=== PATIENT | male | born 1980 | race Caucasian/White ===

== ENCOUNTER 2016-08-10 22:58 | Emergency (ER) | payer OTHER ==
[~2016-08-10] VITALS: Ht 198.1 cm; Wt 108.9 kg
[2016-08-10 23:03] VITALS: BP 119/76
--- NOTE | 2016-08-10 23:14 | NUR ---
DR. FOY AND [facility]- AT THE BEDSIDE FOR EVAL.
--- NOTE | 2016-08-10 23:14 | NUR ---
PT PRESENTED TO THE ER WITH A C/O RT, LT AND UMBILICAL ABD PAIN. PT DENIES N/V/D. PT AMBULATED TO BED #7 WITH A STEADY GAIT.
[2016-08-10 23:40] LABS: BASOPHILS % (AUTO) 0.5 % (0.0-2.0); EOSINOPHILS # (AUTO) 0.3 /CMM (0.0-0.7); EOSINOPHILS % (AUTO) 4.8 % (0.0-6.0); HEMATOCRIT 41 % (39-51); HEMOGLOBIN 13.9 g/dL (13.5-17.5); LYMPHOCYTES # (AUTO) 2.7 /CMM (0.8-4.8); LYMPHOCYTES % (AUTO) 42.1 % (20.0-44.0); MEAN CORPUSCULAR HEMOGLOBIN 30 PG (26.0-33.0); MEAN CORPUSCULAR HGB CONC 34 g/dl (31.0-36.0); MEAN CORPUSCULAR VOLUME 87 fL (80-96); MONOCYTES # (AUTO) 0.5 /CMM (0.1-1.30); MONOCYTES % (AUTO) 7.9 % (2.0-12.0); NEUTROPHILS # (AUTO) 2.9 /CMM (1.8-8.9); NEUTROPHILS % (AUTO) 44.7 % (43.0-81.0); PLATELET COUNT (AUTO) 216 /CMM (150-450); WHITE BLOOD COUNT (AUTO) 6.5 K/uL (4.3-11.0)
[2016-08-10 23:47] LABS: CALCIUM, SERUM 8.4 mg/dL (8.5-10.1); POTASSIUM 4.3 mmol/L (3.5-5.1)
[2016-08-10 23:53] LABS: ALBUMIN 4.1 g/dL (3.4-5.0); BILIRUBIN,DIRECT 0.1 mg/dL (0.0-0.2); BILIRUBIN,TOTAL 0.5 mg/dL (0.2-1.0); TOTAL PROTEIN, SERUM 7.2 g/dL (6.4-8.2)
--- NOTE | 2016-08-10 23:57 | NUR ---
PT IS SLEEPING SOUNDLY/SNORING. NO S/S OF PAIN OR DISTRESS NOTED. DR. FOY NOTIFIED.
--- NOTE | 2016-08-11 00:09 | NUR ---
LU[facility]S OGDEN AND DR. FOY AT THE BEDSIDE FOR US.
[2016-08-11] MEDS ORDERED: FAMOTIDINE (20 MG) 20 MG TABLET ONE (00:12)
--- NOTE | 2016-08-11 00:16 | NUR ---
PT REFUSED MEDICATION.
--- NOTE | 2016-08-11 00:17 | NUR ---
SID BRAGA. DR. FOY IS AWARE.
== END 2016-08-11 00:17 | disposition left against medical advice (07) ==
LOC: ER 23:03
DX: R10.9 Unspecified abdominal pain (principal); Z76.5 Malingerer [conscious simulation]
CPT/HCPCS: 36415; 80048-TC; 80076-TC; 83690-TC; 85025-TC; A4606; Z7610

== ENCOUNTER 2016-12-06 00:04 | Emergency (ER) | payer OTHER ==
[~2016-12-06] VITALS: Ht 198.1 cm; Wt 104.3 kg
[2016-12-06 00:13] VITALS: BP 125/79
[2016-12-06] MEDS ORDERED: PENICILLIN V POTASSIUM 500 MG TABLET PO ONE ×2 (00:30→00:34)
[2016-12-06] MEDS ORDERED: IBUPROFEN 400 MG TABLET PO ONE (00:30)
[2016-12-06] MEDS ORDERED: HYDROCODONE/APAP 10/325MG 1 EA TABLET PO ONE (00:30)
[2016-12-06] MEDS ORDERED: IBUPROFEN 600 MG TABLET PO ONE (00:34)
[2016-12-06] MEDS ORDERED: HYDROCODONE/APAP 10/325MG 1 EA TABLET ONE (00:34)
== END 2016-12-06 00:41 | disposition home or self-care (01) ==
LOC: ER 00:06
DX: K04.7 Periapical abscess without sinus (principal); K85.90 Acute pancreatitis without necrosis or infection, unspecified
CPT/HCPCS: A4606; Z7610

== ENCOUNTER 2017-07-30 14:26 | Emergency (ER) | payer OTHER ==
[~2017-07-30] VITALS: Ht 198.1 cm; Wt 102.1 kg
[2017-07-30 14:54] VITALS: BP 122/84
[2017-07-30] MEDS ORDERED: ACETAMINOPHEN ES 500 MG TABLET ONE (15:11)
[2017-07-30] MEDS ORDERED: LIDOCAINE VISCOUS 2% UD 15 ML UDC ONE (15:11)
[2017-07-30] MEDS: LIDOCAINE VISCOUS 2% UD 15 ML UDC MM ONE (15:14)
[2017-07-30] MEDS: ACETAMINOPHEN ES 500 MG TABLET PO ONE (15:14)
[2017-07-30 15:45] LABS: BASOPHILS % (AUTO) 0.5 % (0.0-2.0); HEMATOCRIT 40 % (39-51); HEMOGLOBIN 13.7 g/dL (13.5-17.5); LYMPHOCYTES # (AUTO) 1.6 /CMM (0.8-4.8); LYMPHOCYTES % (AUTO) 24.8 % (20.0-44.0); MEAN CORPUSCULAR HGB CONC 34 g/dl (31.0-36.0); MEAN CORPUSCULAR VOLUME 88 fL (80-96); MONOCYTES # (AUTO) 0.6 /CMM (0.1-1.30); MONOCYTES % (AUTO) 8.3 % (2.0-12.0); NEUTROPHILS # (AUTO) 4.2 /CMM (1.8-8.9); NEUTROPHILS % (AUTO) 63.4 % (43.0-81.0); PLATELET COUNT (AUTO) 259 /CMM (150-450); RDW COEFFICIENT OF VARIATION 12.8 (11.5-15.0); RED BLOOD CELL COUNT(AUTO) 4.54 MIL/uL (4.5-6.0); WHITE BLOOD COUNT (AUTO) 6.6 K/uL (4.3-11.0)
[2017-07-30 15:54] LABS: CREATININE 1.1 mg/dL (0.6-1.3); POTASSIUM 4.6 mmol/L (3.5-5.1)
== END 2017-07-30 16:55 | disposition home or self-care (01) ==
LOC: ER 14:28
DX: J02.9 Acute pharyngitis, unspecified (principal); K85.90 Acute pancreatitis without necrosis or infection, unspecified; Z60.2 Problems related to living alone
CPT/HCPCS: 36415; 80048-TC; 85025-TC; A4606; Z7610

== ENCOUNTER 2018-01-16 01:37 | Emergency (ER) | payer OTHER ==
[~2018-01-16] VITALS: Ht 198.1 cm; Wt 104.3 kg
[2018-01-16 01:40] VITALS: BP 124/78
[2018-01-16] MEDS ORDERED: IBUPROFEN 400 MG TABLET ONE (01:58)
[2018-01-16] MEDS: IBUPROFEN 400 MG TABLET PO ONE (01:59)
== END 2018-01-16 03:01 | disposition home or self-care (01) ==
LOC: ER 01:37
DX: S83.91XA Sprain of unspecified site of right knee, initial encounter (principal); Z60.2 Problems related to living alone; W22.09XA Striking against other stationary object, initial encounter; Y93.89 Activity, other specified; Y92.89 Other specified places as the place of occurrence of the external cause; Y99.8 Other external cause status
CPT/HCPCS: 73564; 99284; A4606; Z7610

== ENCOUNTER 2018-09-26 23:47 | Emergency (ER) | payer OTHER ==
[~2018-09-26] VITALS: Ht 198.1 cm; Wt 106.6 kg
[2018-09-27 00:08] VITALS: BP 122/75
--- NOTE | 2018-09-27 01:01 | NUR ---
CALLING [facility]ERE RE: RADIOLOGY READS
== END 2018-09-27 03:39 | disposition home or self-care (01) ==
LOC: ER 23:51
DX: M25.561 Pain in right knee (principal); G89.29 Other chronic pain; Z60.2 Problems related to living alone; W18.39XA Other fall on same level, initial encounter; Y93.89 Activity, other specified; Y92.89 Other specified places as the place of occurrence of the external cause; Y99.8 Other external cause status
CPT/HCPCS: 73564-TC